=== PATIENT | female | born 1965 | race Caucasian/White ===

== ENCOUNTER 2016-11-30 06:07 | Day surgery (SDC) | payer OTHER ==
[~2016-11-30] VITALS: Ht 154.9 cm; Wt 88.3 kg
[2016-11-30] VITALS (11 sets, daily range): BP systolic 94–132; BP diastolic 54–68; PULSE 56–77; RESP 15–24; Ht 154.9 cm; Wt 88.3 kg
[2016-11-30] MEDS ORDERED: ASPI-664 PO (07:02)
[2016-11-30] MEDS ORDERED: PROPOFOL 100 ML ONE (07:21)
[2016-11-30] MEDS ORDERED: LIDOCAINE 2% (SDV) 5 ML INJ ONE (07:21)
[2016-11-30] MEDS ORDERED: LIDOCAINE 2% (MDV) 20 ML INJ ONE (07:30)
[2016-11-30] MEDS ORDERED: BUPIVACAINE 0.5% (SDV) 30 ML INJ ONE (07:30)
[2016-11-30] MEDS ORDERED: BUPIVACAINE 0.25% (MPF) 30 ML INJ ONE (07:31)
[2016-11-30] MEDS ORDERED: FENTAnyl 50 MCG/ML VIAL ONE (07:38)
[2016-11-30] MEDS ORDERED: CLINDAMYCIN 600 MG/D5W (PMX) 50 ML IVPB ONE ×2 (08:13→12:30)
[2016-11-30] MEDS ORDERED: DEXAMETHASONE 4 MG/ML 1 ML INJ ONE (08:13)
[2016-11-30] MEDS ORDERED: ONDANSETRON 4 MG INJ ONE (08:14)
--- NOTE | 2016-11-30 08:22 | OPR ---
Date/Time of Note Date/Time of Note DATE: 11/30/16 TIME: 08:18 Operative Report Procedure Date: Nov 30, 2016 Preoperative Diagnosis scalp mass x 2 Postoperative Diagnosis scalp mass x 2 Operation Performed 1. excision of medial scalp mass 3 cm incision and 3 x 2 cm mass 2. excision of left lateral scalp mass 3 cm incision and 3 x 2 cm mass 3. localized adjacent tissue transfer with the use of skin flaps 12 sq cm defect 4. therapeutic injection of subcutaneous marcaine cpt code 80992 Surgeon: Christianne GRAY Anesthesia Type: general Estimated Blood Loss: 0 - 10 ml's Specimens medial scalp mass left lateral scalp mass Grafts/Implants: none Complications: no Indications This is a 51-year-old female with scalp mass 2. She describes it as painful and requires surgical excision. Risks alternatives benefits and personnel was the patient. Potential complications including not limited to bleeding infection scar alopecia were discussed the patient. Patient expresses understanding consents to the operation. Procedure Description She is taken to the OR and prepped and draped in usual sterile fashion. Surgical timeout was performed. IV antibiotics given. Medial scalp mass was addressed with a transverse incision with a 15 blade dissection cautery was carried onto the mass and circumferentially excised the mass was well encapsulated. Hemostasis was established. Due to the large tissue defect localized adjacent to his transfer with these of skin flaps were performed. Multilayer closure with interrupted 4-0 Vicryl's. Attention was then paid to the left lateral scalp mass. Transverse incision is made with a 15 blade and the mass was excised with elliptical incision. The mass and the skin was excised en bloc. Due to the tissue defect localized adjacent tissue transfer with these of skin flaps was performed. Multilayer closure with interrupted 3- 0 Vicryl. Therapeutic subcutaneous Marcaine was injected throughout the incision site. Dry dressings were applied. Christianne GRAY Nov 30, 2016 08:22
[2016-11-30] MEDS ORDERED: KETOROLAC 30 MG INJ IV PRN (08:30)
[2016-11-30] MEDS ORDERED: EPHEDrine SULFATE 50 MG/5 ML SYG IV PRN (08:30)
[2016-11-30] MEDS ORDERED: LABETALOL HCL 20MG INJ IV PRN (08:30)
[2016-11-30] MEDS ORDERED: MEPERIDINE 25 MG INJ IV PRN (08:30)
[2016-11-30] MEDS ORDERED: DIPHENHYDRAMINE 50 MG INJ IV PRN (08:30)
[2016-11-30] MEDS ORDERED: OXYCODONE/ACETAMINOPHEN (5/325) TAB PO PRN ×2 (08:30)
[2016-11-30] MEDS ORDERED: HYDROCODONE/APAP (5/325) TAB PO ONE (08:30)
[2016-11-30] MEDS ORDERED: ONDANSETRON 4 MG INJ IV PRN (08:30)
[2016-11-30] MEDS ORDERED: FENTAnyl 50 MCG/ML VIAL IV PRN ×3 (08:30)
[2016-11-30] MEDS ORDERED: hydrALAzine 20 MG INJ IV PRN (08:30)
[2016-11-30] MEDS ORDERED: SOD CHLORIDE 0.9% 1,000 ML IV ONE (12:30)
== END 2016-11-30 10:34 | disposition home or self-care (01) ==
LOC: SDS 06:07
PROVIDERS: ATTEND Surgery
DX: L72.11 Pilar cyst (principal); E66.01 Morbid (severe) obesity due to excess calories; Z68.36 Body mass index [BMI] 36.0-36.9, adult
CPT/HCPCS: 14021; 88307; J1100; J1885; J2175; J2405; J3010; Z7512; Z7610